=== PATIENT | male | born 1990 ===

== ENCOUNTER 2019-07-24 07:17 | Day surgery (SDC) | payer OTHER ==
[~2019-07-24] VITALS: Ht 170.2 cm; Wt 52.2 kg
[2019-07-24] VITALS (8 sets, daily range): BP systolic 100–110; BP diastolic 56–69
[2019-07-24] MEDS ORDERED: Midazolam 2mg/2ml Inj ONE (07:52)
[2019-07-24] MEDS ORDERED: NKM (07:56)
[2019-07-24] MEDS ORDERED: Propofol 200mg/20ml IV ONE (08:00)
[2019-07-24] MEDS ORDERED: LR 1000ml ONE (08:00)
[2019-07-24] MEDS ORDERED: fentaNYL 100 mcg/2 mL IV ONE (08:00)
[2019-07-24] MEDS ORDERED: LR 1000ml 1,000 ML IVLG SCH (08:14)
--- NOTE | 2019-07-24 08:14 | Anethesia Preoperative Eval ---
Anesthesia Pre-op PMH/ROS General Date of Evaluation: Jul 24, 2019 Time of Evaluation: 08:11 Anesthesiologist: Maria Elena ASA Score: ASA 2 Mallampati Score Class I : Soft palate, uvula, fauces, pillars visible Class II: Soft palate, uvula, fauces visible Class III: Soft palate, base of uvula visible Class IV: Only hard plate visible Mallampati Classification: Class II Surgeon: Marleny Diagnosis: Gastric ulcer Surgical Procedure: EGD Anesthesia History: none Family History: no anesthesia problems Allergies: Coded Allergies: No Known Allergies (Unverified , 07/24/19) Medications: see eMAR Patient NPO?: Yes Past Medical History Cardiovascular: Denies: HTN, CAD, NM, valve dz, arrhythmia, other Pulmonary: Denies: asthma, COPD, ZEE, other Gastrointestinal/Genitourinary: Reports: GERD, other - gastric ulcer; Denies: CRI, ESRD Neurologic/Psychiatric: Denies: dementia, CVA, depression/anxiety, TIA, other Endocrine: Denies: DM, hypothyroidism, steroids, other HEENT: Denies: cataract (L), cataract (R), glaucoma, [place] (L), [place] (R), other Hematology/Immune: Denies: anemia, DVT, bleeding disorder, other Musculoskeletal/Integumentary: Denies: OA, RA, DJD, DDD, edema, other PMH Narrative: as above PSxH Narrative: Hernia repair as a child Anesthesia Pre-op Phys. Exam Physician Exam Last Vital Signs Date Time Temp Pulse Resp B/P (MAP) Pulse Ox O2 Delivery O2 Flow Rate FiO2 07/24/19 07:50 Room Air 07/24/19 07:45 97.3 53 18 110/62 99 Constitutional: NAD Neurologic: CN 2-12 intact Cardiovascular: RRR, no M/R/G Respiratory: CTA Gastrointestinal: S/NT/ND Airway Exam Mallampati Score: Class II MO: full Neck: flexible ROM: full Teeth: intact Dentures: no upper, no lower Anesthesia Pre-op A/P Risk Assessment & Plan Assessment: ASA 2 Plan: MAC Status Change Before Surgery: Azael Jennings MD Jul 24, 2019 08:13
[2019-07-24] MEDS ORDERED: fentaNYL 100 mcg/2 mL IV PRN (08:15)
--- NOTE | 2019-07-24 08:18 | Short Stay Surgery H&P ---
History of Present Illness History of Present Illness Chief Complaint see H&P HPI Cristhian Palomares is a 28 year old male who was admitted on for Pyloric Channel Ulcer Patient History Allergies: Coded Allergies: No Known Allergies (Unverified , 07/24/19) Medication History Scheduled No Known Medications* (NKM - No Known Medications*), 0 ., (Reported) Physical Exam Vital Signs Last Vital Signs Date Time Temp Pulse Resp B/P (MAP) Pulse Ox O2 Delivery O2 Flow Rate FiO2 07/24/19 07:50 Room Air 07/24/19 07:45 97.3 53 18 110/62 99 Plan Attestation Are the patient's medical conditions optimized for surgery? Eduardo Matias MD Jul 24, 2019 08:18
--- NOTE | 2019-07-24 08:19 | Pre-Procedure Note/Attestation ---
Pre-Procedure Note/Attestation Complete Prior to Procedure Planned Procedure: not applicable Procedure Narrative: egd Indications for Procedure Pre-Operative Diagnosis: FH of gastric CA, h/o Pyloric channel ulcer Attestation I attest that I discussed the nature of the procedure; its benefits; risks and complications; and alternatives (and the risks and benefits of such alternatives ), prior to the procedure, with the patient (or the patient's legal accounts payable representative). I attest that, if there was a reasonable possibility of needing a blood transfusion, the patient (or the patient's legal accounts payable representative) was given the [facility] standardized written summary, pursuant to the [employer]ie Blood Safety Act ([place] Health and Safety Code # 1645, as amended). I attest that I re-evaluated the patient just prior to the surgery and that there has been no change in the patient's H&P, except as documented below: Eduardo Matias MD Jul 24, 2019 08:19
--- NOTE | 2019-07-24 08:46 | Immediate Post-Op Evaluation ---
Immediate Post-Op Evalulation Immediate Post-Op Evalulation Procedure: EGD with Bx Date of Evaluation: Jul 24, 2019 Time of Evaluation: 08:44 IV Fluids: 500 Blood Products: none Estimated Blood Loss: min Urinary Output: none Blood Pressure Systolic: 104 Blood Pressure Diastolic: 56 Pulse Rate: 62 Respiratory Rate: 20 O2 Sat by Pulse Oximetry: 98 Temperature (Fahrenheit): 97.6 Pain Score (1-10): 1 Nausea: No Vomiting: No Complications none Patient Status: awake, patent, none Hydration Status: adequate Azael Arredondo MD Jul 24, 2019 08:46
--- NOTE | 2019-07-24 08:58 | Endoscopy Procedure Note ---
Endoscopy Procedure Note General Indication for Procedure: FH of gastric CA, h/o ulcer Procedures Performed: EGD Operative Findings/Diagnosis: erosive antrum gastritis, mild - bx antrum, fundus, gastritis Specimen: yes Estimated Blood Loss: none Anesthesia Anesthesiologist: see report Anesthesia: MAC Medications Medication Given: see anesthesia record Inserted Devices Implant(s) used?: No GI Core Measures 50 yrs or older w/o bx or poly: Not Applicable 10yrs. F/U recommended: Not Applicable Eduardo Matias MD Jul 24, 2019 08:58
--- NOTE | 2019-07-24 08:59 | Brief Operative Note ---
Immediate Post Operative Note Operative Note Pre-op Diagnosis: FH of gastric CA, h/o Pyloric channel ulcer Procedure: ED/Bx Post-op Diagnosis: erosive gastritis Surgeon: taco Anesthesiologist: Ana Rosa Anesthesia: MAC Specimen: yes Complications: none Condition: stable Fluids: recorded Estimated Blood Loss: none Drains: none Implant(s) used?: No Eduardo Matias MD Jul 24, 2019 08:59
--- NOTE | 2019-07-24 09:16 | 48 Hour Post Anesthesia Eval ---
Post Anesthesia Evaluation Procedure: EGD with Bx Date of Evaluation: Jul 24, 2019 Time of Evaluation: 09:15 Blood Pressure Systolic: 104 0: 56 Pulse Rate: 62 Respiratory Rate: 20 Temperature (Fahrenheit): 97.6 O2 Sat by Pulse Oximetry: 98 Airway: patent Nausea: No Vomiting: No Pain Intensity: 1 Hydration Status: adequate Cardiopulmonary Status: stable Mental Status/LOC: patient returned to baseline Follow-up Care/Observations: n/a Post-Anesthesia Complications: none Follow-up care needed: ready to discharge Azael Arredondo MD Jul 24, 2019 09:16
--- NOTE | 2019-07-24 15:45 | Procedure Note ---
DATE OF PROCEDURE: 07/24/2019 PROCEDURE: Upper gastrointestinal endoscopy with biopsy. SURGEON: Eduardo Matias M.D. ANESTHESIA: Please see the anesthesiologist notes for details. PRE-ENDOSCOPIC DIAGNOSIS: Family history of gastric cancer and personal history of pyloric channel ulcer. POST-ENDOSCOPIC DIAGNOSIS: 1. Erosive antrum gastritis with two small areas of erosions identified. 2. Status post random biopsies of the entire antrum, entire fundus, and also biopsies of erosive areas which were sent to pathology in separate bottles. DESCRIPTION OF PROCEDURE: The procedure, its risks, indications, alternatives, and possible complications were explained and informed consent was obtained. The patient was then sedated in the left lateral decubitus position and a diagnostic upper endoscope was introduced through the oropharynx and advanced to the duodenum. The endoscope was then gradually withdrawn and mucosa examined carefully. Examination of the upper gastrointestinal mucosa revealed two small patches of erosions in the antrum of the stomach, which were biopsied and sent to pathology for review. Biopsies of the entire antrum and entire fundus were sent to pathology in separate bottles. There were no mass lesions or polyps. The endoscope was removed and the patient was sent to recovery in good condition. COMPLICATIONS: None. RECOMMENDATIONS: 1. Followup biopsy results. 2. Check and treat Helicobacter pylori if positive. 3. Outpatient followup. Eduardo Matias M.D. DR: Aldo JOB#: [id number] CC: Eduardo Matias M.D.; Fax#: [phone]
== END 2019-07-24 10:00 | disposition home or self-care (01) ==
LOC: GAS 07:17
DX: K29.50 Unspecified chronic gastritis without bleeding (principal); Z80.0 Family history of malignant neoplasm of digestive organs; K21.9 Gastro-esophageal reflux disease without esophagitis
CPT/HCPCS: 43239; J2250; J2704; J3010; 94003; 94150